=== PATIENT | female | born 1965 | race Caucasian/White ===

== ENCOUNTER → 2019-12-27 | Outpatient (CLI) | payer OTHER ==
[~2019-12-27] MED LIST: ALBU90OI; BUPR100ER; CEPH500 PO; FLUC100; HYDACE5 PO; LORA10ER; META800 PO; METHI10; MIRT30; MONT10T; NAPR550 PO; OXYACE5T PO; RANI150; SULTRIDS PO
[2019-12-28 07:09] LABS: HIV SCREEN 4TH GENERATION WRFX Non Reactive (Non Reactive)
[2019-12-28 10:50] LABS: Candida species (DNA Probe) Negative (NEGATIVE); G. vaginalis (DNA Probe) Negative (NEGATIVE); T. vaginalis (DNA Probe) Positive (NEGATIVE)
[2019-12-29 02:10] LABS: CHLAMYDIA TRACHOMATIS, NAA Negative (Negative); NEISSERIA GONORRHOEAE, NAA Negative (Negative)
== END | disposition home or self-care (01) ==
LOC: LAB SHORT 12:39 → LAB 12:39
PROVIDERS: Internal Medicine
DX: N89.8 Other specified noninflammatory disorders of vagina (principal)
CPT/HCPCS: 86592; 87389; 87480; 87491; 87510; 87591; 87660

== ENCOUNTER 2020-09-03 07:55 | Day surgery (SDC) | payer OTHER ==
[~2020-09-03] VITALS: Ht 177.8 cm; Wt 83.0 kg
[~2020-09-03 07:55] MED LIST changes: +ESCI10 PO; +Flonase 0.05% N16 GM INH; -METHI10; +METHI10 PO; +Premarin0.3 MG
[2020-09-03] MEDS ORDERED: MONT10T PO (08:21)
[2020-09-03] MEDS ORDERED: LISI5 PO (08:22)
--- NOTE | 2020-09-03 08:30 | NUR ---
Ambulatory in Day Surgery History, Chart, Medications and Allergies reviewed before start of procedure.Patient confirms NPO status and agrees with scheduled surgery. Patient states colon prep results clear.Lungs clear T/O to Auscultation. Patient States Post-Procedure ride home has been arranged WITH FRIEND
--- NOTE | 2020-09-03 08:34 | NUR ---
09/03/20 0834 Royal Vazquez 3-LEAD EKG REVIEWED WITH PHYSICIAN PRIOR TO START OF PROCEDURE.Patient to ENDO 1History, Chart, Medications and Allergies reviewed before start of procedure.MONITOR INTACT WITH CONTINUOUS PULSE OXIMETRY AND INTERMITTENT BP.O2 VIA N/C INTACT THROUGHOUT SEDATION/PROCEDURE.
--- NOTE | 2020-09-03 10:48 | NUR ---
Patient up to Ambulate independently. Gait steady. Discharge instructions reviewed with patient. Patient verbalizes understanding. Copy given to patient to take home. Discharged via wheelchair to private car for ride home.
== END 2020-09-03 22:45 | disposition home or self-care (01) ==
LOC: ORSCMMR 07:55
PROVIDERS: Internal Medicine Gastroenterology
PROC: 0DBN8ZX Excision of Sigmoid Colon, Via Natural or Artificial Opening Endoscopic, Diagnostic (ICD-10-PCS; principal; 2020-09-03 09:00)
PROC: 0DBM8ZX Excision of Descending Colon, Via Natural or Artificial Opening Endoscopic, Diagnostic (ICD-10-PCS; principal; 2020-09-03 09:00)
DX: Z12.11 Encounter for screening for malignant neoplasm of colon (principal); Z86.010 Personal history of colon polyps; D12.5 Benign neoplasm of sigmoid colon; D12.4 Benign neoplasm of descending colon; K63.5 Polyp of colon; G47.33 Obstructive sleep apnea (adult) (pediatric); I10 Essential (primary) hypertension; E03.9 Hypothyroidism, unspecified; F32.9 Major depressive disorder, single episode, unspecified; F17.210 Nicotine dependence, cigarettes, uncomplicated; Z79.899 Other long term (current) drug therapy
CPT/HCPCS: 88305; J2250; J3010; J7120

== ENCOUNTER 2022-01-22 18:59 | Emergency (ER) | payer OTHER ==
[~2022-01-22] VITALS: Ht 175.3 cm; Wt 72.6 kg
[~2022-01-22 18:59] MED LIST changes: +LISI5 PO; +MONT10T PO
== END 2022-01-22 22:30 | disposition left against medical advice (07) ==
LOC: ER 18:59
DX: S59.902A Unspecified injury of left elbow, initial encounter (principal); X58.XXXA Exposure to other specified factors, initial encounter; Z53.21 Procedure and treatment not carried out due to patient leaving prior to being seen by health care provider
CPT/HCPCS: 73080

== ENCOUNTER → 2022-07-08 | Outpatient (CLI) | payer OTHER ==
[2022-07-08 15:02] LABS: BASOPHILS ABSOLUTE AUTO 0.05 K/mm3 (0.00-0.23); BASOPHILS PERCENT AUTO 1 % (0-2); EOSINOPHILS ABSOLUTE AUTO 0.31 K/mm3 (0.00-0.68); EOSINOPHILS PERCENT AUTO 5 % (0-6); Hematocrit 41.5 % (33.0-51.0); Hemoglobin 14.2 g/dL (11.5-16.0); IMMATURE GRAN ABSOLUTE AUTO 0.01 K/mm3 (0.00-0.10); IMMATURE GRAN PERCENT AUTO 0 % (0-1); LYMPHOCYTES ABSOLUTE AUTO 1.98 K/mm3 (0.84-5.20); LYMPHOCYTES PERCENT AUTO 31 % (21-46); MONOCYTES ABSOLUTE AUTO 0.46 K/mm3 (0.16-1.47); MONOCYTES PERCENT AUTO 7 % (4-13); Mean Corpuscular HGB 32.4 pg (26.0-34.0); Mean Corpuscular HGB Conc 34.2 g/dL (31.5-36.5); Mean Corpuscular Volume 95 fL (80-100); Mean Platelet Volume 8.9 fL (9.1-12.4); NEUTROPHILS ABSOLUTE AUTO 3.63 K/mm3 (1.96-9.15); NEUTROPHILS PERCENT AUTO 56 % (41-73); Platelet Count 356 K/mm3 (150-400); RDW Coefficient Variation 12.5 % (11.7-14.2); RDW Standard Deviation 43.5 fL (35.1-46.3); Red Blood Cell Count 4.38 M/mm3 (3.80-5.20); White Blood Cell Count 6.44 K/mm3 (4.00-11.30)
[2022-07-08 17:32] LABS: Free Thyroxine 1.04 ng/dL (0.70-1.60); Thyroid Stimulating Hormone 0.714 uIU/mL (0.360-4.800); Triiodothyronine, Free 3.64 pg/mL (2.18-3.98)
[2022-07-09 08:10] LABS: HIV AB/P24 AG SCREEN Non Reactive (Non Reactive)
[2022-07-10 02:07] LABS: HBSAG SCREEN Negative (Negative); HCV AB <0.1 (0.0-0.9); HEP B CORE AB, TOT Negative (Negative)
[2022-07-13 06:09] LABS: HSV-1 DNA Negative (Negative); HSV-2 DNA Negative (Negative)
== END | disposition home or self-care (01) ==
LOC: LAB 13:26 → LAB SHORT 13:26
PROVIDERS: Family Medicine
DX: Z00.00 Encounter for general adult medical examination without abnormal findings (principal); Z11.59 Encounter for screening for other viral diseases; R00.2 Palpitations
CPT/HCPCS: 84439; 84443; 84481; 85025; 86592; 86704; 86708; 86803; 87340; 87389; 87529

== ENCOUNTER 2023-04-26 04:17 | Inpatient (IN) | payer OTHER ==
[~2023-04-26] VITALS: Ht 172.7 cm; Wt 72.8 kg
[2023-04-26 04:42] LABS: BASOPHILS ABSOLUTE AUTO 0.05 K/mm3 (0.00-0.23); BASOPHILS PERCENT AUTO 1 % (0-2); EOSINOPHILS ABSOLUTE AUTO 0.63 K/mm3 (0.00-0.68); EOSINOPHILS PERCENT AUTO 8 % (0-6); Hematocrit 37.1 % (33.0-51.0); Hemoglobin 12.4 g/dL (11.5-16.0); IMMATURE GRAN ABSOLUTE AUTO 0.02 K/mm3 (0.00-0.10); IMMATURE GRAN PERCENT AUTO 0 % (0-1); LYMPHOCYTES ABSOLUTE AUTO 4.27 K/mm3 (0.84-5.20); LYMPHOCYTES PERCENT AUTO 55 % (21-46); MONOCYTES ABSOLUTE AUTO 0.54 K/mm3 (0.16-1.47); MONOCYTES PERCENT AUTO 7 % (4-13); Mean Corpuscular HGB 31.6 pg (26.0-34.0); Mean Corpuscular HGB Conc 33.4 g/dL (31.5-36.5); Mean Corpuscular Volume 94 fL (80-100); Mean Platelet Volume 8.6 fL (9.1-12.4); NEUTROPHILS ABSOLUTE AUTO 2.31 K/mm3 (1.96-9.15); NEUTROPHILS PERCENT AUTO 30 % (41-73); Platelet Count 250 K/mm3 (150-400); RDW Coefficient Variation 12.6 % (11.7-14.2); RDW Standard Deviation 44.2 fL (35.1-46.3); Red Blood Cell Count 3.93 M/mm3 (3.80-5.20); White Blood Cell Count 7.82 K/mm3 (4.00-11.30)
[2023-04-26 04:57] LABS: Bicarbonate Venous 24.8 mmol/L (24.0-30.0); pH Blood Venous 7.33 (7.34-7.37)
[2023-04-26 05:06] LABS: Alanine Aminotransfer (ALT/SGP 22 U/L (12-78); Albumin, Blood 3.9 g/dL (3.4-5.0); Albumin/Globulin Ratio 1.3 (0.8-1.8); Alk Phos 71 U/L (50-136); Anion Gap 6 mmol/L (6-16); Aspartate Aminotrans (AST/SGOT 22 U/L (12-37); Bilirubin, Total 0.3 mg/dL (0.1-1.0); Blood Urea Nitrogen 15 mg/dL (8-24); Bun/Creatinine Ratio 11.9 (12.0-20.0); CO2, Blood 27 mmol/L (21-32); Calcium, Blood 8.3 mg/dL (8.5-10.1); Chloride, Blood 108 mmol/L (98-108); Creatinine, Blood 1.26 mg/dL (0.40-1.00); Ethanol (Alcohol), Blood, Med 253 mg/dL; Globulin, Blood 2.9 g/dL (2.2-4.0); Glomerular Filtration Rate 49 (60-); Glucose, Blood 116 mg/dL (70-99); Magnesium, Blood 2.3 mg/dL (1.6-2.4); Potassium, Blood 3.2 mmol/L (3.5-5.5); Sodium, Blood 141 mmol/L (136-145); Total Protein, Blood 6.8 g/dL (6.4-8.2)
[2023-04-26 05:32] LABS: U Amphetamine Screen DETECTED; U Barbituate Screen Not Detected; U Benzodiazapine Screen Not Detected; U Buprenorphine Screen Not Detected; U Cannabinoids Screen DETECTED; U Cocaine Screen Not Detected; U Methadone Screen Not Detected; U Methamphetamine Screen DETECTED; U Opiates Screen Not Detected; U Oxycodone Screen Not Detected; U Phencyclidine Screen Not Detected; U Propoxyphene Screen Not Detected
[2023-04-26 07:00] VITALS: BP 168/101
--- NOTE | 2023-04-26 08:28 | NUR ---
ADMIT PT ARRIVED TO ICU VIA STRETCHER SLEEPING, BUT THEN WOKE UP AND ASKED TO USE THE BATHROOM. PT ALERT AND FOLLOWING COMMANDS SO ASSISTED TO THE COMMODE AND THEN TO ICU BED. PT REMAINS ALERT AND ORIENTED TO PERSON AND PLACE. SHE IS CONFUSED ON DATE AND TIME, THINKING THAT IT IS STILL TUESDAY. REORIENTED PT. NARCAN GTT INFUSING, ETCO2 MONITOR ON PT, BUT OXYGEN TITRATED DOWN TO 1L/NC. PT ADMITS TO DRINKING ONE "BLACK VELVET AND COKE" LAST NIGHT, SMOKING MARIJUANA AND TAKING A CBD GUMMY THAT HER SON ORDERS ONLINE. SHE DENIES ANY OTHER DRUG USE INCLUDING METH. PT'S FRIEND WHO IS HER EX SO WAS IN THE WAITING ROOM AND PT STATES IT IS OK FOR HIM TO COME BACK. DR. KIRKLAND IN THE ROOM TALKING WITH THEM CURRENTLY.
[2023-04-26] MEDS ORDERED: FLUT1DIS2 INH (08:44)
[2023-04-26] MEDS ORDERED: INCRUSE ELLIPTA INH (08:47)
[2023-04-26 09:00] VITALS: BP 127/87
--- NOTE | 2023-04-26 09:14 | NUR ---
PT STARTING TO GET RESTLESS, WANTS TO GO OUTSIDE AND SMOKE. PT DOES NOT HAVE HER CIGARETTES OR CODING TECH WITH HER. OFFERED A NICOTINE PATCH, WHICH SHE AGREED TO. CALLED DR. KIRKLAND AND GOT ORDERS FOR THE PATCH AND DIET. OFFERED PT BREAKFAST, BUT SHE SAYS SHE DOESN'T EAT BREAKFAST. OFFERED COFFEE, WHICH SHE ACCEPTED. PT IS SAYING THAT SHE WILL NOT BE STAYING IN THE HOSPITAL PAST NOON. EDUCATED PT ON THE REASONS SHE NEEDS TO STAY IN THE HOSPITAL. DISCUSSED WITH PT THAT THE WANTS HER TO STAY ANOTHER NIGHT AND IF SHE LEAVES IT WILL BE AMA. PT HAS EXPRESSED FINANCIAL CONCERNS SO PT ADVISED TO CHECK WITH HER INSURANCE BEFORE SHE MAKES A DECISION.
[2023-04-26] MEDS ORDERED: ABILIFY MYCITE10 M2 PO (09:45)
[2023-04-26] MEDS ORDERED: Prozac20 MG PO (09:46)
[2023-04-26] MEDS ORDERED: AMLO5 PO (09:47)
[2023-04-26] MEDS ORDERED: ZYRTEC10 M2 PO (09:48)
[2023-04-26 10:00] VITALS: BP 133/82
--- NOTE | 2023-04-26 10:48 | NUR ---
AMA PT VERY ANXIOUS AND AGITATED, INSISTING ON GOING HOME BECAUSE SHE NEEDS A CIGARETTE. PT'S WHOLE BODY WAS SHAKING WITH ANXIETY AND THE MORE AGITATED SHE GOT THE MORE LABORED HER BREATHING BECAME. OFFERED PT ANXIETY MEDICATION OR TO TRY NICOTINE GUM, BUT PT REFUSES. PT OFFERES NO SOLUTIONS EXCEPT FOR LEAVING TO SMOKE. RISKS DISCUSSED WITH PT AND SHE VERBALIZES UNDERSTANDING. DR. KIKRLAND NOTIFIED AND CAME TO THE BEDSIDE TO TALK WITH PT. PT WAS ABLE TO CALM HERSELF SOME SO THAT HER BREATHING WASN'T LABORED. DR. KIRKLAND DISCUSSED TREATMENTS THAT PT NEEDS TO TAKE AT HOME AND PT VERIFIED THAT SHE HAS A HOME NEBULIZER. DISCUSSED OPTIONS FOR AIR FILTERS AT HOME WITH THE WILDFIRE SMOKE, BUT PT SAYS SHE CAN'T AFFORD ANYTHING. PT ADVISED TO MAKE FOLLOW UP APPOINTMENT WITH PATSY BY DR. KIRKLAND. PT'S IVS REMOVED. PT'S SHIRT WAS CUT OFF SO PROVIDED WITH PAPER SHIRT. PT TAKEN TO THE HOSPITAL ENTRANCE BY WC. ALL BELONGINGS WITH PT WHEN SHE LEFT.
== END 2023-04-26 10:35 | disposition left against medical advice (07) | DRG 189 ==
LOC: ER 04:17 → ICUE 06:18
PROVIDERS: Student in an Organized Health Care Education/Training Program; ADMIT Student in an Organized Health Care Education/Training Program
PROC: HZ2ZZZZ Detoxification Services for Substance Abuse Treatment (ICD-10-PCS; principal; 2023-04-26)
DX: J96.01 Acute respiratory failure with hypoxia (principal); E87.4 Mixed disorder of acid-base balance; N17.9 Acute kidney failure, unspecified; J44.1 Chronic obstructive pulmonary disease with (acute) exacerbation; F10.129 Alcohol abuse with intoxication, unspecified; F15.10 Other stimulant abuse, uncomplicated; Y90.8 Blood alcohol level of 240 mg/100 ml or more; F12.10 Cannabis abuse, uncomplicated; E87.6 Hypokalemia; E03.9 Hypothyroidism, unspecified; G47.33 Obstructive sleep apnea (adult) (pediatric); J45.909 Unspecified asthma, uncomplicated; F32.A Depression, unspecified; I12.9 Hypertensive chronic kidney disease with stage 1 through stage 4 chronic kidney disease, or unspecified chronic kidney disease; N18.30 Chronic kidney disease, stage 3 unspecified; F17.210 Nicotine dependence, cigarettes, uncomplicated; J96.02 Acute respiratory failure with hypercapnia; F15.159 Other stimulant abuse with stimulant-induced psychotic disorder, unspecified; T38.0X5A Adverse effect of glucocorticoids and synthetic analogues, initial encounter; Z53.29 Procedure and treatment not carried out because of patient's decision for other reasons; L27.0 Generalized skin eruption due to drugs and medicaments taken internally; Z87.11 Personal history of peptic ulcer disease; Z90.11 Acquired absence of right breast and nipple; Z98.890 Other specified postprocedural states; Z88.5 Allergy status to narcotic agent; Z79.811 Long term (current) use of aromatase inhibitors; Z79.899 Other long term (current) drug therapy; Z71.6 Tobacco abuse counseling
CPT/HCPCS: 51701; 71045; 80053; 82803; 83735; 83880; 84443; 84484; 85025; 93005; 93010; 94640; 94664; 96365; 96367; 96376; 99291-25; 99292; A9270; G0480; J2310; J3411; J3480; J7030; J7120

== ENCOUNTER → 2023-06-15 | Outpatient (CLI) | payer OTHER ==
[~2023-06-15] MED LIST changes: +ABILIFY MYCITE10 M2 PO; +AMLO5 PO; +FLUT1DIS2 INH; +INCRUSE ELLIPTA INH; +Prozac20 MG PO; +ZYRTEC10 M2 PO
== END | disposition home or self-care (01) ==
LOC: LAB SHORT 14:34 → LAB 14:34
DX: Z01.812 Encounter for preprocedural laboratory examination (principal); R21 Rash and other nonspecific skin eruption
CPT/HCPCS: 88305; 88313

== ENCOUNTER → 2023-09-07 | Outpatient (CLI) | payer OTHER ==
[2023-09-07 19:17] LABS: Microalb/Creat Ratio UR, Rand Unable to Calculate mg/g (0.000-30.000); Microalbumin, Random Urine <5.000 mg/L (0.000-20.000)
== END | disposition home or self-care (01) ==
LOC: LAB SHORT 16:08 → LAB 16:08
PROVIDERS: Family Medicine
DX: I10 Essential (primary) hypertension (principal)
CPT/HCPCS: 82043; 82570

== ENCOUNTER → 2023-10-14 | Outpatient (CLI) | payer OTHER ==
[2023-10-22 08:47] LABS: HPV SOURCE Vaginal
== END | disposition home or self-care (01) ==
LOC: LAB 12:02 → LAB SHORT 12:02
PROVIDERS: Family Medicine
DX: Z01.419 Encounter for gynecological examination (general) (routine) without abnormal findings (principal)
CPT/HCPCS: G0123

== ENCOUNTER → 2024-06-23 | Outpatient (CLI) | payer OTHER | LOC: LAB SHORT 13:43 → LAB 13:43 | DX: L98.9 Disorder of the skin and subcutaneous tissue, unspecified (principal) | CPT/HCPCS: 87070; 87075; 87205 ==

== ENCOUNTER 2025-03-05 12:30 | Emergency (ER) | payer OTHER ==
[~2025-03-05] VITALS: Ht 175.3 cm; Wt 74.8 kg
[2025-03-05 13:26] LABS: BASOPHILS ABSOLUTE AUTO 0.04 K/mm3 (0.00-0.23); BASOPHILS PERCENT AUTO 1 % (0-2); EOSINOPHILS ABSOLUTE AUTO 0.27 K/mm3 (0.00-0.68); EOSINOPHILS PERCENT AUTO 5 % (0-6); Hematocrit 40.5 % (33.0-51.0); Hemoglobin 14.0 g/dL (11.5-16.0); IMMATURE GRAN ABSOLUTE AUTO 0.02 K/mm3 (0.00-0.10); IMMATURE GRAN PERCENT AUTO 0 % (0-1); LYMPHOCYTES ABSOLUTE AUTO 1.67 K/mm3 (0.84-5.20); LYMPHOCYTES PERCENT AUTO 28 % (21-46); MONOCYTES ABSOLUTE AUTO 0.43 K/mm3 (0.16-1.47); MONOCYTES PERCENT AUTO 7 % (4-13); Mean Corpuscular HGB Conc 34.6 g/dL (31.5-36.5); Mean Corpuscular Volume 92 fL (80-100); NEUTROPHILS ABSOLUTE AUTO 3.56 K/mm3 (1.96-9.15); NEUTROPHILS PERCENT AUTO 59 % (41-73); NRBC ABSOLUTE 0.00 K/mm3 (0.00-0.02); NRBC Auto 0.0 /100 WBC (0.0-0.2); Platelet Count 279 K/mm3 (150-400); RDW Coefficient Variation 12.5 % (11.7-14.2); RDW Standard Deviation 42.6 fL (35.1-46.3)
[2025-03-05 13:59] LABS: Alanine Aminotransfer (ALT/SGP 18.0 U/L (12-78); Albumin, Blood 3.7 g/dL (3.4-5.0); Albumin/Globulin Ratio 1.2 (0.8-1.8); Anion Gap 2.0 mmol/L (3-11); Aspartate Aminotrans (AST/SGOT 18.0 U/L (12-37); Bilirubin, Total 0.6 mg/dL (0.1-1.0); Blood Urea Nitrogen 14.0 mg/dL (8-24); CO2, Blood 32.0 mmol/L (21-32); Calcium, Blood 8.9 mg/dL (8.5-10.1); Chloride, Blood 110.0 mmol/L (98-108); Creatinine, Blood 1.02 mg/dL (0.40-1.00); Globulin, Blood 3.1 g/dL (2.2-4.0); Glucose, Blood 98.0 mg/dL (70-99); Potassium, Blood 4.3 mmol/L (3.5-5.5); Sodium, Blood 140.0 mmol/L (136-145); Total Protein, Blood 6.8 g/dL (6.4-8.2)
[2025-03-05 15:11] VITALS: BP 168/96
== END 2025-03-05 15:43 | disposition home or self-care (01) ==
LOC: ER 12:30
PROVIDERS: Physician Assistant
DX: R55 Syncope and collapse (principal)
CPT/HCPCS: 70450; 80053; 85025; 93005; 93010; 99284-25

== ENCOUNTER → 2025-06-26 | Outpatient (CLI) | payer OTHER | LOC: LAB SHORT 17:28 → LAB 17:28 | DX: L02.419 Cutaneous abscess of limb, unspecified (principal) | CPT/HCPCS: 87070; 87075; 87077; 87147; 87186; 87205 ==

== ENCOUNTER 2025-07-20 19:34 | Emergency (ER) | payer OTHER ==
[~2025-07-20] VITALS: Ht 175.3 cm; Wt 78.0 kg
[2025-07-20] MEDS ORDERED: Ipratropium/Albuterol SulF 2.5-0.5MG/3 ML Amp INH ONE (20:05)
[2025-07-20 20:26] LABS: BASOPHILS ABSOLUTE AUTO 0.08 K/mm3 (0.00-0.23); BASOPHILS PERCENT AUTO 1 % (0-2); EOSINOPHILS ABSOLUTE AUTO 0.14 K/mm3 (0.00-0.68); EOSINOPHILS PERCENT AUTO 1 % (0-6); Hematocrit 38.5 % (33.0-51.0); Hemoglobin 13.0 g/dL (11.5-16.0); IMMATURE GRAN ABSOLUTE AUTO 0.22 K/mm3 (0.00-0.10); IMMATURE GRAN PERCENT AUTO 2 % (0-1); LYMPHOCYTES ABSOLUTE AUTO 1.40 K/mm3 (0.84-5.20); LYMPHOCYTES PERCENT AUTO 10 % (21-46); MONOCYTES ABSOLUTE AUTO 1.25 K/mm3 (0.16-1.47); MONOCYTES PERCENT AUTO 9 % (4-13); Mean Corpuscular HGB Conc 33.8 g/dL (31.5-36.5); Mean Corpuscular Volume 93 fL (80-100); NEUTROPHILS ABSOLUTE AUTO 11.36 K/mm3 (1.96-9.15); NEUTROPHILS PERCENT AUTO 79 % (41-73); NRBC ABSOLUTE 0.00 K/mm3 (0.00-0.02); NRBC Auto 0.0 /100 WBC (0.0-0.2); Platelet Count 413 K/mm3 (150-400); RDW Coefficient Variation 13.3 % (11.7-14.2); RDW Standard Deviation 45.5 fL (35.1-46.3)
[2025-07-20 20:43] LABS: Alanine Aminotransfer (ALT/SGP 50 U/L (12-78); Albumin, Blood 3.3 g/dL (3.4-5.0); Albumin/Globulin Ratio 0.8 (0.8-1.8); Anion Gap 10 mmol/L (3-11); Aspartate Aminotrans (AST/SGOT 39 U/L (12-37); Bilirubin, Total 0.4 mg/dL (0.1-1.0); Blood Urea Nitrogen 10 mg/dL (8-24); CO2, Blood 26 mmol/L (21-32); Calcium, Blood 9.2 mg/dL (8.5-10.1); Chloride, Blood 98 mmol/L (98-108); Creatinine, Blood 0.89 mg/dL (0.40-1.00); Globulin, Blood 4.0 g/dL (2.2-4.0); Glucose, Blood 128 mg/dL (70-99); Potassium, Blood 2.7 mmol/L (3.5-5.5); Sodium, Blood 131 mmol/L (136-145); Total Protein, Blood 7.3 g/dL (6.4-8.2)
[2025-07-20 21:13] LABS: Influenza A, PCR NEGATIVE (NEGATIVE); Influenza B, PCR NEGATIVE (NEGATIVE); Resp Syncytial Virus, PCR NEGATIVE (NEGATIVE); SARS-Cov-2 (COVID-19) PCR, MMC NEGATIVE (NEGATIVE)
[2025-07-20 21:25] LABS: Magnesium, Blood 1.7 mg/dL (1.6-2.4)
[2025-07-20 21:35] LABS: Ethanol (Alcohol), Blood, Med <3 mg/dL
[2025-07-20] MEDS ORDERED: Mag Sulfate 1 GM/D5% 100ML 100 ML IV ONE (22:50)
[2025-07-20] MEDS ORDERED: PRED20 PO (23:02)
[2025-07-20] MEDS ORDERED: AZIT250 PO (23:02)
[2025-07-20 23:24] VITALS: BP 142/88
== END 2025-07-21 01:00 | disposition home or self-care (01) ==
LOC: ER 19:34
PROVIDERS: Student in an Organized Health Care Education/Training Program
DX: J45.901 Unspecified asthma with (acute) exacerbation (principal); J18.9 Pneumonia, unspecified organism; E87.6 Hypokalemia; E83.42 Hypomagnesemia; R74.01 Elevation of levels of liver transaminase levels; I12.9 Hypertensive chronic kidney disease with stage 1 through stage 4 chronic kidney disease, or unspecified chronic kidney disease; N18.30 Chronic kidney disease, stage 3 unspecified; E03.9 Hypothyroidism, unspecified; F17.210 Nicotine dependence, cigarettes, uncomplicated; Z88.5 Allergy status to narcotic agent; Z79.51 Long term (current) use of inhaled steroids; Z79.899 Other long term (current) drug therapy
CPT/HCPCS: 71046; 80053; 80320; 83735; 84484; 85025; 87637; 93005; 93010; 96365; 96375; 99285-25; A9270; J2919; J3475

== ENCOUNTER → 2025-08-09 | Outpatient (CLI) | payer OTHER ==
[~2025-08-09] MED LIST changes: +AZIT250 PO; +PRED20 PO
== END ==
LOC: LAB SHORT 15:45 → LAB 15:45
DX: B37.81 Candidal esophagitis (principal)
CPT/HCPCS: 87081